=== PATIENT | female | born 1945 | race Two or more races ===

== ENCOUNTER 2021-09-11 10:15 | Inpatient (IN) | payer OTHER ==
[~2021-09-11] VITALS: Ht 170.2 cm; Wt 77.1 kg
[2021-09-11] MEDS ORDERED: PEPCID40 MG PO (13:41)
[2021-09-11] MEDS ORDERED: ZETIA10 MG PO (13:41)
[2021-09-11] MEDS ORDERED: STOOL SOFTENER50 MG PO (13:42)
[2021-09-11] MEDS ORDERED: TYLENOL EXTRA500 MG PO (13:42)
[2021-09-16] MEDS ORDERED: DILTIAZEM HCL30 MG (13:13)
[2021-09-16] MEDS ORDERED: DICLOFENAC SOD100 GM (13:13)
[2021-09-16] MEDS ORDERED: METOPROLOL SUCC25 MG (13:14)
[2021-09-16] MEDS ORDERED: DEXILANT60 MG (13:14)
[2021-09-19] MEDS ORDERED: PERCOCET 10-321 EACH PO (16:34)
== END 2021-09-19 17:54 | disposition home or self-care (01) | DRG 330 ==
LOC: O/R 09-16 06:00 → SURH 09-16 07:00 → EDBD 09-16 10:15 → SURH 09-16 16:19
PROVIDERS: ADMIT Surgery; ATTEND Surgery
PROC: 0DBN4ZZ Excision of Sigmoid Colon, Percutaneous Endoscopic Approach (ICD-10-PCS; 2021-09-16)
PROC: 3E0F7SF Introduction of Other Gas into Respiratory Tract, Via Natural or Artificial Opening (ICD-10-PCS; 2021-09-16)
PROC: 0DBP4ZZ Excision of Rectum, Percutaneous Endoscopic Approach (ICD-10-PCS; principal; 2021-09-16 07:00)
PROC: BT0B1ZZ Plain Radiography of Bladder and Urethra using Low Osmolar Contrast (ICD-10-PCS; 2021-09-19)
DX: K57.32 Diverticulitis of large intestine without perforation or abscess without bleeding (principal); N32.1 Vesicointestinal fistula; K58.9 Irritable bowel syndrome, unspecified; Z20.822 Contact with and (suspected) exposure to COVID-19